=== PATIENT | female | born 1970 | race Caucasian/White ===

== ENCOUNTER 2022-05-09 21:10 | Observation (INO) | payer OTHER ==
[2022-05-09 21:37] VITALS: BMI 25.5
[2022-05-09 22:33] LABS: Troponin I Less than 0.010 ng/mL (< 0.028)
[2022-05-10] MEDS ORDERED: Nitroglycerin 0.4 MG TAB (25 Tab Bottle) SL PRN (00:03)
[2022-05-10 04:37] LABS: #Basophils 0.1 10x3/uL (0.0-0.2); #Eosinphils 0.1 10x3/uL (0.0-0.5); #Monocytes 0.5 10x3/uL (0.0-1.1); #Neutrophils 3.4 10x3/uL (1.5-8.4); %Basophils 0.8 % (0.0-2.0); %Eosinophils 2.1 % (0.0-6.0); %Lymphocytes 38.6 % (18.0-47.0); %Monocytes 7.4 % (0.0-10.0); %Neutrophils 50.9 % (40.0-75.0); Hemoglobin 12.9 g/dL (12.0-15.5); Mean Corpuscular HGB CONC 33.4 g/dL (32.0-36.0); Mean Corpuscular Hemoglobin 29.5 pg (27.0-33.0); Mean Corpuscular Volume 88.3 fl (81.6-98.3); Mean Platelet Volume 10.7 fl (7.4-10.4); Platelet Count 201 10x3/uL (150-450); RBC Distribution Width 13.2 % (11.5-14.5); Red Blood Cell (RBC) Count 4.37 10x6/uL (3.90-5.03); White Blood Cell (WBC) Count 6.6 10x3/uL (3.5-10.5)
[2022-05-10 04:42] LABS: Anion Gap 12 mmol/L (10-20); BUN (Urea Nitrogen) 21 mg/dL (7.0-18.7); Calc. Creatinine Clearance 97 mL/min (70-130); Calcium 9.2 mg/dL (7.8-10.44); Carbon Dioxide 28 mmol/L (22-29); Cardiac Risk 6.2 (Less than 4.5); Chloride 105 mmol/L (98-107); Cholesterol 277 mg/dl (< 200 Desired); Estimated GFR 88; Glucose 225 mg/dL (70-105); HDL Cholesterol 45 mg/dL (>60 Neg Risk); LDL Cholesterol, Calculated 188 mg/dL; Magnesium 1.8 mg/dL (1.6-2.6); Potassium 4.2 mmol/L (3.5-5.1); Sodium 141 mmol/L (136-145); Triglycerides 220 mg/dL (Less than 150)
[2022-05-10 04:46] LABS: Troponin I Less than 0.010 ng/mL (< 0.028)
[2022-05-10] MEDS ORDERED: Enoxaparin Sodium 40 MG/0.4 ML SYRINGE SC SCH (09:00)
[2022-05-10] MEDS ORDERED: (Linaclotide [Linzess] 290 MCG Capsule) PO SCH (09:00)
[2022-05-10] MEDS ORDERED: FLU VACC QS2022-23(6MOS UP)/PF 60 MCG/0.5 ML SYRINGE IM ONE (09:00)
[2022-05-10] MEDS: Ascorbic Acid 500 mg Chewable Tablet PO SCH (09:40)
[2022-05-10] MEDS: Pregabalin 75 MG CAP PO SCH ×2 (09:40→23:15)
[2022-05-10] MEDS: tiZANidine HCl 4 MG TAB PO SCH (09:41)
[2022-05-10] MEDS: Cholecalciferol 1,000 UNITS (25 MCG) TAB PO SCH (09:42)
[2022-05-10] MEDS: Cyclobenzaprine 10 MG TAB PO SCH ×3 (09:42→23:15)
[2022-05-10] MEDS: Clopidogrel Bisulfate 75 MG TAB PO SCH (09:42)
[2022-05-10] MEDS: Aspirin 81 mg Enteric Coated Tablet PO SCH (09:42)
[2022-05-10] MEDS: Zinc Sulfate 220 MG CAP PO SCH (09:42)
[2022-05-10] MEDS: PARoxetine 20 MG TAB PO SCH (09:43)
[2022-05-10] MEDS: Meloxicam 7.5 MG TAB PO SCH (09:46)
[2022-05-10] MEDS ORDERED: Dextrose 50% Abboject 50 ML SYRINGE SLOW IVP PRN (10:58)
[2022-05-10] MEDS ORDERED: Dextrose 5% in Water 1,000 ML IV PRN (10:58)
[2022-05-10] MEDS: HumaLOG 300 UNITS/3 ML VIAL SC PRN ×2 (11:29→17:44)
[2022-05-10 15:29] LABS: Hemoglobin A1c 12.6 % (4.0-6.0)
[2022-05-10] MEDS ORDERED: Communication Order-Pharmacy FS SCH (18:00)
[2022-05-10] MEDS: Sodium Chloride 0.9% 1,000 ML IV SCH (19:53)
[2022-05-10] MEDS ORDERED: Atorvastatin Calcium 40 MG TAB PO SCH (21:00)
[2022-05-10] MEDS: hydrOXYzine 25 MG TAB PO SCH (23:15)
[2022-05-10] MEDS: Atorvastatin Calcium 40 MG TAB PO SCH (23:15)
[2022-05-10] MEDS: Lantus 1000 UNITS/10 ML VIAL SC SCH (23:16)
[2022-05-11] MEDS: Pregabalin 75 MG CAP PO SCH ×2 (05:59→20:58)
[2022-05-11] MEDS: tiZANidine HCl 4 MG TAB PO SCH (05:59)
[2022-05-11] MEDS: Cholecalciferol 1,000 UNITS (25 MCG) TAB PO SCH (06:00)
[2022-05-11] MEDS: Cyclobenzaprine 10 MG TAB PO SCH ×3 (06:00→21:00)
[2022-05-11] MEDS: Ascorbic Acid 500 mg Chewable Tablet PO SCH (06:00)
[2022-05-11] MEDS: Meloxicam 7.5 MG TAB PO SCH (06:01)
[2022-05-11] MEDS: Clopidogrel Bisulfate 75 MG TAB PO SCH (06:02)
[2022-05-11] MEDS: PARoxetine 20 MG TAB PO SCH (06:02)
[2022-05-11] MEDS: Zinc Sulfate 220 MG CAP PO SCH (06:02)
[2022-05-11] MEDS: Aspirin 81 mg Enteric Coated Tablet PO SCH (06:02)
[2022-05-11 06:04] LABS: Anion Gap 11 mmol/L (10-20); BUN (Urea Nitrogen) 20 mg/dL (7.0-18.7); Calc. Creatinine Clearance 114 mL/min (70-130); Calcium 8.5 mg/dL (7.8-10.44); Carbon Dioxide 24 mmol/L (22-29); Chloride 109 mmol/L (98-107); Estimated GFR 106; Glucose 133 mg/dL (70-105); Magnesium 1.7 mg/dL (1.6-2.6); Sodium 140 mmol/L (136-145)
[2022-05-11 06:07] LABS: Troponin I Less than 0.010 ng/mL (< 0.028)
[2022-05-11] MEDS: Sodium Chloride 0.9% 1,000 ML IV SCH ×2 (06:22→10:50)
[2022-05-11] MEDS ORDERED: Nitroglycerin 50 MG/250 ML BOT 0 ML ONE (07:22)
[2022-05-11] MEDS ORDERED: Heparin 10,000 UNITS/ 10 ML VIAL ONE (07:23)
[2022-05-11] MEDS ORDERED: Lidocaine 1% 20 ML MDV ONE (07:48)
[2022-05-11] MEDS ORDERED: Fentanyl 100 MCG/2 ML VIAL ONE (08:42)
[2022-05-11] MEDS ORDERED: Midazolam HCl 2 mg/2 ml Vial ONE (08:43)
[2022-05-11] MEDS ORDERED: Iopamidol 300 61% 100 ML VIAL FS ONE (09:05)
[2022-05-11] MEDS ORDERED: Iopamidol 300 61% 50 ML VIAL FS ONE (09:05)
[2022-05-11] MEDS: Lantus 1000 UNITS/10 ML VIAL SC SCH ×2 (09:26→21:02)
[2022-05-11] MEDS ORDERED: TICAGRELOR 90 MG TABLET ONE (09:27)
[2022-05-11] MEDS ORDERED: Adenosine 6 MG/2 ML VIAL ONE (09:43)
[2022-05-11] MEDS ORDERED: Atropine Sulfate 0.4 mg/1 ml Vial ONE (09:52)
[2022-05-11] MEDS ORDERED: Protamine Sulfate 50 MG/5 ML VIAL ONE (09:59)
[2022-05-11] MEDS: HYDROcodone/Acetaminophen 10/325 mg Tablet PO PRN (13:02)
[2022-05-11] MEDS: Atorvastatin Calcium 40 MG TAB PO SCH (21:00)
[2022-05-11] MEDS: hydrOXYzine 25 MG TAB PO SCH (21:01)
[2022-05-11] MEDS: TICAGRELOR 90 MG TABLET PO SCH (21:01)
[2022-05-12] MEDS: Sodium Chloride 0.9% 1,000 ML IV SCH ×2 (00:08→07:02)
[2022-05-12 04:58] LABS: ALT (SGPT) 70 U/L (8-55); AST (SGOT) 70 U/L (5-34); Albumin 3.1 g/dL (3.5-5.0); Alkaline Phosphatase 91 U/L (40-110); Anion Gap 10 mmol/L (10-20); BUN (Urea Nitrogen) 14 mg/dL (7.0-18.7); Bilirubin, Total 0.3 mg/dL (0.2-1.2); Calc. Creatinine Clearance 121 mL/min (70-130); Calcium 8.4 mg/dL (7.8-10.44); Carbon Dioxide 23 mmol/L (22-29); Chloride 109 mmol/L (98-107); Estimated GFR 107; Glucose 179 mg/dL (70-105); Potassium 3.9 mmol/L (3.5-5.1); Protein, Total 5.1 g/dL (6.0-8.3); Sodium 138 mmol/L (136-145)
[2022-05-12 04:59] LABS: #Eosinphils 0.2 10x3/uL (0.0-0.5); #Monocytes 0.4 10x3/uL (0.0-1.1); #Neutrophils 3.3 10x3/uL (1.5-8.4); %Basophils 0.6 % (0.0-2.0); %Lymphocytes 27.5 % (18.0-47.0); %Monocytes 7.2 % (0.0-10.0); %Neutrophils 61.5 % (40.0-75.0); Hemoglobin 11.9 g/dL (12.0-15.5); Mean Corpuscular HGB CONC 33.9 g/dL (32.0-36.0); Mean Corpuscular Hemoglobin 29.8 pg (27.0-33.0); Mean Platelet Volume 10.8 fl (7.4-10.4); Platelet Count 184 10x3/uL (150-450); Red Blood Cell (RBC) Count 3.99 10x6/uL (3.90-5.03); White Blood Cell (WBC) Count 5.4 10x3/uL (3.5-10.5)
[2022-05-12] MEDS: HumaLOG 300 UNITS/3 ML VIAL SC PRN (07:03)
[2022-05-12 07:33] VITALS: BP 129/88; TEMP 97.4
[2022-05-12] MEDS ORDERED: Ezetimibe 10 MG TAB PO SCH (09:00)
[2022-05-12] MEDS ORDERED: Aspirin Chewable 81 MG TAB PO SCH (09:00)
[2022-05-12] MEDS: PARoxetine 20 MG TAB PO SCH (09:04)
[2022-05-12] MEDS: Ascorbic Acid 500 mg Chewable Tablet PO SCH (09:04)
[2022-05-12] MEDS: Cholecalciferol 1,000 UNITS (25 MCG) TAB PO SCH (09:04)
[2022-05-12] MEDS: HYDROcodone/Acetaminophen 10/325 mg Tablet PO PRN (09:04)
[2022-05-12] MEDS: Zinc Sulfate 220 MG CAP PO SCH (09:04)
[2022-05-12] MEDS: Cyclobenzaprine 10 MG TAB PO SCH (09:04)
[2022-05-12] MEDS: TICAGRELOR 90 MG TABLET PO SCH (09:04)
[2022-05-12] MEDS: tiZANidine HCl 4 MG TAB PO SCH (09:04)
[2022-05-12] MEDS: Lantus 1000 UNITS/10 ML VIAL SC SCH (09:05)
[2022-05-12] MEDS: Pregabalin 75 MG CAP PO SCH (09:05)
== END 2022-05-12 11:16 | disposition home or self-care (01) ==
LOC: INTOOBSV 21:10 → CSHTELE 21:10 → UNDOADMOB 21:10 → CSHTELE 05-10 00:03
PROVIDERS: ADMIT Family Medicine; ATTEND Internal Medicine
PROC: B241ZZ3 Ultrasonography of Multiple Coronary Arteries, Intravascular (ICD-10-PCS; principal; 2022-05-11)
PROC: 02703DZ Dilation of Coronary Artery, One Artery with Intraluminal Device, Percutaneous Approach (ICD-10-PCS; 2022-05-11)
DX: I25.110 Atherosclerotic heart disease of native coronary artery with unstable angina pectoris (principal); I34.0 Nonrheumatic mitral (valve) insufficiency; I36.1 Nonrheumatic tricuspid (valve) insufficiency; U07.1 COVID-19; E11.9 Type 2 diabetes mellitus without complications; E78.5 Hyperlipidemia, unspecified; I10 Essential (primary) hypertension; F41.0 Panic disorder [episodic paroxysmal anxiety]; K80.20 Calculus of gallbladder without cholecystitis without obstruction; G89.29 Other chronic pain; F41.9 Anxiety disorder, unspecified; K21.9 Gastro-esophageal reflux disease without esophagitis; J90 Pleural effusion, not elsewhere classified; Z90.49 Acquired absence of other specified parts of digestive tract; Z96.651 Presence of right artificial knee joint; Z79.82 Long term (current) use of aspirin; Z79.899 Other long term (current) drug therapy; Z79.4 Long term (current) use of insulin
CPT/HCPCS: 36415; 36416; 80048; 80053; 80061; 83036; 83735; 84484; 85025; 85347; 92928; 92978; 92979; 93005; 93010; 93306; 93458; 96372; 97139; 99152; 99153; C1725; C1753; C1760; C1769; C1874; C1887; C9600; G0378; J0153; J0461; J1644; J1650; J1815; J2250; J2720; J3010; J7050; Q9967

== ENCOUNTER 2022-06-15 00:52 | Observation (INO) | payer OTHER ==
[2022-06-15] MEDS ORDERED: Sodium Chloride 0.9% 1,000 ML IV SCH (02:00)
[2022-06-15] MEDS ORDERED: diphenhydrAMINE 50 MG/ML VIAL IVP SCH ×2 (02:00→05:00)
[2022-06-15] MEDS ORDERED: Promethazine HCl 12.5 MG in Sodium Chloride 0.9% 50 ML IVPB SCH (02:00)
[2022-06-15] MEDS ORDERED: Aspirin 300 MG Suppository PR SCH (02:00)
[2022-06-15] MEDS ORDERED: Ketorolac Tromethamine 30 MG/ML VIAL IVP SCH (02:00)
[2022-06-15 02:13] LABS: Troponin I 0.012 ng/mL (< 0.028)
[2022-06-15 02:25] LABS: #Basophils 0.1 10x3/uL (0.0-0.2); #Eosinphils 0.2 10x3/uL (0.0-0.5); #Monocytes 0.4 10x3/uL (0.0-1.1); #Neutrophils 3.5 10x3/uL (1.5-8.4); %Basophils 1.1 % (0.0-2.0); %Eosinophils 2.7 % (0.0-6.0); %Lymphocytes 36.8 % (18.0-47.0); %Monocytes 6.6 % (0.0-10.0); %Neutrophils 52.6 % (40.0-75.0); Hemoglobin 12.7 g/dL (12.0-15.5); Mean Corpuscular Volume 85.6 fl (81.6-98.3); Mean Platelet Volume 11.6 fl (7.4-10.4); Platelet Count 217 10x3/uL (150-450); RBC Distribution Width 12.9 % (11.5-14.5); Red Blood Cell (RBC) Count 4.24 10x6/uL (3.90-5.03); White Blood Cell (WBC) Count 6.6 10x3/uL (3.5-10.5)
[2022-06-15 02:27] LABS: INR-International Normal Ratio 0.9; PTT 25.3 sec (22.0-33.0); Prothrombin Time 9.6 sec (9.5-12.1)
[2022-06-15 02:32] LABS: Anion Gap 15 mmol/L (10-20); BUN (Urea Nitrogen) 19 mg/dL (7.0-18.7); Calc. Creatinine Clearance 0 mL/min (70-130); Calcium 9.6 mg/dL (7.8-10.44); Carbon Dioxide 25 mmol/L (22-29); Chloride 104 mmol/L (98-107); Estimated GFR 65; Glucose 394 mg/dL (70-105); Magnesium 1.9 mg/dL (1.6-2.6); Potassium 4.5 mmol/L (3.5-5.1); Sodium 139 mmol/L (136-145)
[2022-06-15] MEDS ORDERED: Dextrose 5% in Water 1,000 ML IV PRN (02:34)
[2022-06-15] MEDS ORDERED: Dextrose 50% Abboject 50 ML SYRINGE SLOW IVP PRN (02:34)
[2022-06-15] MEDS ORDERED: Insulin Regular 300 UNITS/3 ML VIAL SC PRN (02:34)
[2022-06-15] MEDS ORDERED: HumaLOG 300 UNITS/3 ML VIAL SC PRN (02:34)
[2022-06-15 02:38] VITALS: BMI 26.7
[2022-06-15] MEDS: Sodium Chloride 0.9% 1,000 ML IV SCH ×3 (04:51→21:41)
[2022-06-15] MEDS: Nitroglycerin 2% Ointment 1 INCH/1 GM Packet TOP SCH ×3 (04:51→18:30)
[2022-06-15 07:18] LABS: Troponin I Less than 0.010 ng/mL (< 0.028)
[2022-06-15] MEDS ORDERED: Pantoprazole 40 MG VIAL IVP SCH (09:00)
[2022-06-15] MEDS: Enoxaparin Sodium 40 MG/0.4 ML SYRINGE SC SCH (09:00)
[2022-06-15] MEDS: TICAGRELOR 90 MG TABLET PO SCH ×2 (09:01→21:20)
[2022-06-15] MEDS: Lantus 1000 UNITS/10 ML VIAL SC SCH ×2 (11:13→21:24)
[2022-06-15] MEDS: Atorvastatin Calcium 40 MG TAB PO SCH (21:20)
[2022-06-15] MEDS: HumaLOG 300 UNITS/3 ML VIAL SC PRN (23:47)
[2022-06-16] MEDS: Nitroglycerin 2% Ointment 1 INCH/1 GM Packet TOP SCH ×3 (06:37→17:55)
[2022-06-16] MEDS ORDERED: LINACLOTIDE 290 MCG PO SCH (09:00)
[2022-06-16] MEDS: Lansoprazole 3 MG/ML ORAL SUSPENSION PO SCH (09:26)
[2022-06-16] MEDS: Enoxaparin Sodium 40 MG/0.4 ML SYRINGE SC SCH (09:26)
[2022-06-16] MEDS: TICAGRELOR 90 MG TABLET PO SCH ×2 (09:27→21:11)
[2022-06-16] MEDS: Aspirin Chewable 81 MG TAB PO SCH ×2 (09:29→09:32)
[2022-06-16] MEDS: Lantus 1000 UNITS/10 ML VIAL SC SCH ×2 (09:29→21:12)
[2022-06-16] MEDS: HumaLOG 300 UNITS/3 ML VIAL SC PRN ×2 (11:37→16:46)
[2022-06-16] MEDS: Atorvastatin Calcium 40 MG TAB PO SCH (21:12)
[2022-06-17] MEDS: Nitroglycerin 2% Ointment 1 INCH/1 GM Packet TOP SCH ×2 (03:02→13:07)
[2022-06-17] MEDS: HumaLOG 300 UNITS/3 ML VIAL SC PRN (06:38)
[2022-06-17] MEDS ORDERED: Acetaminophen 325 MG TAB PO PRN (07:41)
[2022-06-17] MEDS ORDERED: Ondansetron ODT 4 MG TAB PO PRN (07:45)
[2022-06-17] MEDS ORDERED: Aspirin 81 mg Enteric Coated Tablet PO SCH (09:00)
[2022-06-17] MEDS ORDERED: Lisinopril 10 MG TAB PO SCH (09:00)
[2022-06-17] MEDS: Enoxaparin Sodium 40 MG/0.4 ML SYRINGE SC SCH (09:27)
[2022-06-17] MEDS: Lantus 1000 UNITS/10 ML VIAL SC SCH (09:27)
[2022-06-17] MEDS: TICAGRELOR 90 MG TABLET PO SCH (09:28)
[2022-06-17] MEDS: Lansoprazole 3 MG/ML ORAL SUSPENSION PO SCH (09:32)
[2022-06-17 09:35] VITALS: BP 130/85; TEMP 98.7
== END 2022-06-17 11:04 | disposition home or self-care (01) ==
LOC: INTOOBSV 00:52 → CSHTELE 00:52
PROVIDERS: ADMIT Family Medicine; ATTEND Internal Medicine
DX: R07.89 Other chest pain (principal); R07.2 Precordial pain; I25.10 Atherosclerotic heart disease of native coronary artery without angina pectoris; I11.0 Hypertensive heart disease with heart failure; I50.30 Unspecified diastolic (congestive) heart failure; E78.2 Mixed hyperlipidemia; E11.65 Type 2 diabetes mellitus with hyperglycemia; R53.81 Other malaise; R11.2 Nausea with vomiting, unspecified; F41.0 Panic disorder [episodic paroxysmal anxiety]; K21.9 Gastro-esophageal reflux disease without esophagitis; G43.909 Migraine, unspecified, not intractable, without status migrainosus; G89.4 Chronic pain syndrome; Z91.14 Patient's other noncompliance with medication regimen; Z85.42 Personal history of malignant neoplasm of other parts of uterus; Z86.73 Personal history of transient ischemic attack (TIA), and cerebral infarction without residual deficits; Z79.82 Long term (current) use of aspirin; Z79.4 Long term (current) use of insulin; Z79.899 Other long term (current) drug therapy; Z87.891 Personal history of nicotine dependence; Z95.5 Presence of coronary angioplasty implant and graft; Z90.49 Acquired absence of other specified parts of digestive tract; Z90.710 Acquired absence of both cervix and uterus; Z98.890 Other specified postprocedural states
CPT/HCPCS: 36415; 36416; 80048; 80061; 83690; 83735; 84484; 85025; 85610; 85730; 93005; 93010; 96372; 96374; 96375; 96376; C9113; G0378; J1200; J1650; J1815; J1885; J2550; J7050; Q0162

== ENCOUNTER 2023-06-23 13:59 | Emergency (ER) | payer OTHER ==
[~2023-06-23 13:59] MED LIST: Iopamidol 300 61% 100 ML VIAL FS ONE
[2023-06-23] MEDS ORDERED: Morphine 4 MG/ML VIAL ONE (15:35)
[2023-06-23] MEDS ORDERED: Ondansetron PF 4 MG/2 ML Vial ONE (15:35)
[2023-06-23 16:00] LABS: #Basophils 0.1 10x3/uL (0.0-0.2); #Eosinphils 0.2 10x3/uL (0.0-0.5); #Monocytes 0.5 10x3/uL (0.0-1.1); #Neutrophils 4.6 10x3/uL (1.5-8.4); %Basophils 0.8 % (0.0-2.0); %Eosinophils 2.4 % (0.0-6.0); %Lymphocytes 37.4 % (18.0-47.0); %Neutrophils 53.3 % (40.0-75.0); Hemoglobin 14.2 g/dL (12.0-15.5); Mean Corpuscular HGB CONC 33.8 g/dL (32.0-36.0); Mean Corpuscular Volume 85.7 fl (81.6-98.3); Mean Platelet Volume 10.4 fl (7.4-10.4); Platelet Count 221 10x3/uL (150-450); RBC Distribution Width 13.2 % (11.5-14.5); White Blood Cell (WBC) Count 8.7 10x3/uL (3.5-10.5)
[2023-06-23 16:14] LABS: INR-International Normal Ratio 0.9; PTT 26.3 sec (22.0-33.0); Prothrombin Time 9.6 sec (9.5-12.1)
[2023-06-23 16:22] LABS: ALT (SGPT) 53 U/L (8-55); AST (SGOT) 13 U/L (5-34); Albumin 4.4 g/dL (3.5-5.0); Alkaline Phosphatase 141 U/L (40-110); Anion Gap 17 mmol/L (10-20); BUN (Urea Nitrogen) 11 mg/dL (9.8-20.1); Bilirubin, Total 0.2 mg/dL (0.2-1.2); Calc. Creatinine Clearance 0 mL/min (70-130); Calcium 9.9 mg/dL (7.8-10.44); Carbon Dioxide 23 mmol/L (22-29); Chloride 106 mmol/L (98-107); Estimated GFR 95; Globulin 2.5 g/dL (2.4-3.5); Glucose 123 mg/dL (70-105); Lipase 32 U/L (8-78); Magnesium 1.7 mg/dL (1.6-2.6); Potassium 3.8 mmol/L (3.5-5.1); Protein, Total 6.9 g/dL (6.0-8.3); Sodium 142 mmol/L (136-145)
[2023-06-23 16:28] LABS: Troponin I Less than 0.010 ng/mL (< 0.028)
== END 2023-06-23 18:04 | disposition home or self-care (01) ==
LOC: CSHERS 13:59
DX: R10.13 Epigastric pain (principal); M79.81 Nontraumatic hematoma of soft tissue; R11.0 Nausea; I10 Essential (primary) hypertension; E11.9 Type 2 diabetes mellitus without complications
CPT/HCPCS: 74177; 80053; 83605; 83690; 83735; 84484; 85025; 85610; 85730; 93005; 93010; 94760; 96361; 96374; 96375; J2270; J2405; Q9967

== ENCOUNTER 2023-12-19 16:25 | Inpatient (IN) | payer OTHER ==
[2023-12-19 17:50] LABS: #Basophils 0.05 10x3/uL (0.0-0.2); #Eosinphils 0.09 10x3/uL (0.0-0.5); #Monocytes 1.01 10x3/uL (0.0-1.1); #Neutrophils 10.07 10x3/uL (1.5-8.4); %Basophils 0.4 % (0.0-2.0); %Eosinophils 0.7 % (0.0-6.0); %Lymphocytes 13.1 % (18.0-47.0); %Monocytes 7.8 % (0.0-10.0); %Neutrophils 77.5 % (40.0-75.0); Hematocrit 33.8 % (34.9-44.5); Hemoglobin 11.9 g/dL (12.0-15.5); Mean Corpuscular HGB CONC 35.2 g/dL (32.0-36.0); Mean Corpuscular Hemoglobin 30.4 pg (27.0-33.0); Mean Corpuscular Volume 86.2 fL (81.6-98.3); Mean Platelet Volume 10.7 fL (7.4-10.4); Platelet Count 379 10x3/uL (150-450); RBC Distribution Width 12.3 % (11.5-14.5); Red Blood Cell (RBC) Count 3.92 10x6/uL (3.90-5.03)
[2023-12-19 18:11] LABS: Prothrombin Time 10.5 sec (9.5-12.1)
[2023-12-19 18:12] LABS: ALT (SGPT) 14 U/L (8-55); AST (SGOT) 12 U/L (5-34); Alkaline Phosphatase 148 U/L (40-110); Anion Gap 18 mmol/L (10-20); BUN (Urea Nitrogen) 13 mg/dL (9.8-20.1); Bilirubin, Total 0.2 mg/dL (0.2-1.2); Calc. Creatinine Clearance 0 mL/min (70-130); Calcium 9.2 mg/dL (7.8-10.44); Carbon Dioxide 21 mmol/L (22-29); Chloride 99 mmol/L (98-107); Estimated GFR 68; Globulin 3.8 g/dL (2.4-3.5); Potassium 4.5 mmol/L (3.5-5.1); Protein, Total 6.8 g/dL (6.0-8.3); Sodium 133 mmol/L (136-145)
[2023-12-19 18:19] LABS: Glucose 423 mg/dL (70-105)
[2023-12-19] MEDS ORDERED: Piperacillin/Tazobactam 4.5 GM VIAL ONE (18:20)
[2023-12-19] MEDS ORDERED: Vancomycin 1 GM VIAL ONE (18:20)
[2023-12-19] MEDS ORDERED: Calcium Carbonate 500 MG ChewTAB PO PRN (19:17)
[2023-12-19] MEDS ORDERED: Ondansetron PF 4 MG/2 ML Vial IVP PRN (19:17)
[2023-12-19] MEDS ORDERED: Glucagon 1 MG/ML KIT IM PRN (19:17)
[2023-12-19] MEDS ORDERED: Acetaminophen 325 MG TAB PO PRN (19:17)
[2023-12-19] MEDS ORDERED: Senokot S 8.6-50 MG TAB PO PRN (19:17)
[2023-12-19] MEDS ORDERED: Dextrose 50% Abboject 50 ML SYRINGE SLOW IVP PRN (19:17)
[2023-12-19] MEDS ORDERED: Dextrose 5% in Water 1,000 ML IV PRN (19:17)
[2023-12-19] MEDS ORDERED: hydrOXYzine 25 MG TAB PO PRN (19:21)
[2023-12-19] MEDS: Clindamycin/D5W 600 MG in Premix 1 BAG IVPB SCH (20:49)
[2023-12-19] MEDS: Zolpidem Tartrate 5 MG TAB PO PRN (21:09)
[2023-12-19] MEDS: Lactated Ringer's 1,000 ML IV SCH (21:09)
[2023-12-19] MEDS: HYDROcodone/Acetaminophen 5/325 mg Tablet PO PRN (21:10)
[2023-12-19] MEDS: Pregabalin 75 MG CAP PO SCH (21:10)
[2023-12-19] MEDS: tiZANidine HCl 4 MG TAB PO SCH (21:10)
[2023-12-19] MEDS: Ranolazine ER 500 MG TAB PO SCH (21:10)
[2023-12-19] MEDS: Metoprolol Tartrate 25 MG TAB PO SCH (21:10)
[2023-12-19] MEDS: Cyclobenzaprine 10 MG TAB PO SCH (21:10)
[2023-12-19] MEDS: HumaLOG 300 UNITS/3 ML VIAL SC PRN (21:11)
[2023-12-19] MEDS: Lantus 1000 UNITS/10 ML VIAL SC SCH (21:11)
[2023-12-19 22:39] VITALS: BMI 25.8
[2023-12-20] MEDS: Cefepime 2 GM in Sodium Chloride 0.9% 100 ML IVPB SCH (00:11)
[2023-12-20] MEDS: Ketorolac Tromethamine 30 MG (1 mL) VIAL IVP SCH (00:11)
[2023-12-20 03:42] LABS: #Basophils 0.03 10x3/uL (0.0-0.2); #Eosinphils 0.11 10x3/uL (0.0-0.5); #Neutrophils 6.64 10x3/uL (1.5-8.4); %Basophils 0.3 % (0.0-2.0); %Eosinophils 1.1 % (0.0-6.0); %Lymphocytes 20.2 % (18.0-47.0); %Monocytes 10.2 % (0.0-10.0); %Neutrophils 67.8 % (40.0-75.0); Hematocrit 29.6 % (34.9-44.5); Mean Corpuscular HGB CONC 33.8 g/dL (32.0-36.0); Mean Corpuscular Hemoglobin 29.5 pg (27.0-33.0); Mean Corpuscular Volume 87.3 fL (81.6-98.3); Mean Platelet Volume 10.7 fL (7.4-10.4); Platelet Count 343 10x3/uL (150-450); RBC Distribution Width 12.3 % (11.5-14.5); Red Blood Cell (RBC) Count 3.39 10x6/uL (3.90-5.03); White Blood Cell (WBC) Count 9.8 10x3/uL (3.5-10.5)
[2023-12-20 03:46] LABS: Anion Gap 13 mmol/L (10-20); BUN (Urea Nitrogen) 12 mg/dL (9.8-20.1); Calc. Creatinine Clearance 97 mL/min (70-130); Calcium 8.4 mg/dL (7.8-10.44); Carbon Dioxide 22 mmol/L (22-29); Chloride 107 mmol/L (98-107); Estimated GFR 89; Glucose 233 mg/dL (70-105); Potassium 3.7 mmol/L (3.5-5.1); Sodium 138 mmol/L (136-145)
[2023-12-20 03:51] LABS: Vancomycin, Random 6.5 ug/mL (See Comment)
[2023-12-20] MEDS: Vancomycin 1 GM in Sodium Chloride 0.9% 250 ML 250 ML IVPB SCH (05:27)
[2023-12-20] MEDS: Enoxaparin 40 MG (0.4 mL) SYRINGE SC SCH (08:12)
[2023-12-20] MEDS: Atorvastatin Calcium 40 MG TAB PO SCH (08:13)
[2023-12-20] MEDS: PARoxetine 20 MG TAB PO SCH (08:13)
[2023-12-20] MEDS: Aspirin 81 mg Enteric Coated Tablet PO SCH (08:13)
[2023-12-20] MEDS: glipiZIDE XL 5 mg ER.TAB PO SCH (08:13)
[2023-12-20] MEDS: Pantoprazole DR 40 MG TAB PO SCH (08:13)
[2023-12-20] MEDS ORDERED: Linaclotide [Linzess] 290 MCG Capsule PO SCH (09:00)
[2023-12-20] MEDS: Pancrelipase DR 12,000 1 CAP PO SCH (09:19)
[2023-12-20 09:56] VITALS: BMI 25.8
[2023-12-20] MEDS: Ketorolac Tromethamine 30 MG (1 mL) VIAL IVP PRN (12:59)
[2023-12-20] MEDS: Acetaminophen 500 MG TAB PO SCH (13:00)
[2023-12-20 13:12] LABS: Hemoglobin A1c 12.5 % (4.0-6.0)
[2023-12-20] MEDS ORDERED: Promethazine 25 MG TAB PO PRN (14:42)
[2023-12-20] MEDS: VANCOMYCIN 1.25 GM/250 ML BAG 1.25 GM in Premix 1 BAG IVPB SCH (14:56)
[2023-12-20] MEDS: traMADol HCl 50 MG TAB PO PRN (16:58)
[2023-12-21 06:01] LABS: #Basophils 0.04 10x3/uL (0.0-0.2); #Eosinphils 0.11 10x3/uL (0.0-0.5); #Monocytes 0.66 10x3/uL (0.0-1.1); %Basophils 0.6 % (0.0-2.0); %Eosinophils 1.7 % (0.0-6.0); %Lymphocytes 33.1 % (18.0-47.0); %Monocytes 10.2 % (0.0-10.0); %Neutrophils 53.9 % (40.0-75.0); Hematocrit 29.5 % (34.9-44.5); Mean Corpuscular HGB CONC 33.9 g/dL (32.0-36.0); Mean Corpuscular Hemoglobin 29.3 pg (27.0-33.0); Mean Corpuscular Volume 86.5 fL (81.6-98.3); Mean Platelet Volume 10.6 fL (7.4-10.4); Platelet Count 337 10x3/uL (150-450); RBC Distribution Width 12.2 % (11.5-14.5); Red Blood Cell (RBC) Count 3.41 10x6/uL (3.90-5.03); White Blood Cell (WBC) Count 6.5 10x3/uL (3.5-10.5)
[2023-12-21 06:07] LABS: Anion Gap 11 mmol/L (10-20); BUN (Urea Nitrogen) 15 mg/dL (9.8-20.1); Calc. Creatinine Clearance 105 mL/min (70-130); Calcium 8.6 mg/dL (7.8-10.44); Carbon Dioxide 23 mmol/L (22-29); Chloride 106 mmol/L (98-107); Estimated GFR 97; Glucose 224 mg/dL (70-105); Potassium 4.2 mmol/L (3.5-5.1); Sodium 136 mmol/L (136-145)
[2023-12-21] MEDS: Bupivacaine HCl 0.5%/Epinephrine 1:200,000/PF 30 ml Vial FS SCH (14:44)
[2023-12-21] MEDS: Lidocaine 1% w/Epinephrine 1:200K 30 ML VIAL FS SCH (14:44)
[2023-12-22 04:41] LABS: Vancomycin, Random 54.5 ug/mL (See Comment)
[2023-12-22] MEDS ORDERED: HYDROcodone/Acetaminophen 7.5/325 mg Tablet PO PRN (08:07)
[2023-12-22] MEDS: guaiFENesin/DM ER PO SCH (09:34)
[2023-12-22] MEDS: Guaifenesin DM 100-10/5 ML UDCUP PO PRN (09:36)
[2023-12-22] MEDS: Morphine 4 MG/ML VIAL SLOW IVP SCH (10:00)
[2023-12-22 10:30] LABS: Vancomycin, Random 23.7 ug/mL (See Comment)
[2023-12-22] MEDS: HYDROcodone/Acetaminophen 7.5/325 mg Tablet PO PRN (12:16)
[2023-12-22] MEDS: Morphine 4 MG/ML VIAL SLOW IVP PRN (17:30)
[2023-12-22] MEDS: Vancomycin 1 GM in Sodium Chloride 0.9% 250 ML 250 ML IVPB SCH (17:30)
[2023-12-23] MEDS ORDERED: Sulfameth/Trimethoprim DS 800-160mg TAB PO SCH (09:00)
[2023-12-23] MEDS: LevoFLOXacin 750 MG TAB PO SCH (11:20)
[2023-12-23 11:55] VITALS: BP 123/78; TEMP 98.8
[2023-12-23] MEDS ORDERED: TICAGRELOR 90 MG TABLET PO SCH (21:00)
[2023-12-23] MEDS ORDERED: Famotidine 20 MG TAB PO SCH (21:00)
[2023-12-24] MEDS ORDERED: LevoFLOXacin 750 MG TAB PO SCH (06:00)
== END 2023-12-23 14:43 | disposition home or self-care (01) | DRG 872 ==
LOC: CSHERS 16:25 → CSHTELE 18:12
PROVIDERS: ADMIT Student in an Organized Health Care Education/Training Program; ATTEND Family Medicine
PROC: 3E03329 Introduction of Other Anti-infective into Peripheral Vein, Percutaneous Approach (ICD-10-PCS; 2023-12-19)
PROC: 0J9H0ZZ Drainage of Left Lower Arm Subcutaneous Tissue and Fascia, Open Approach (ICD-10-PCS; principal; 2023-12-20)
PROC: 3E033XZ Introduction of Vasopressor into Peripheral Vein, Percutaneous Approach (ICD-10-PCS; 2023-12-20)
DX: A41.01 Sepsis due to Methicillin susceptible Staphylococcus aureus (principal); L03.114 Cellulitis of left upper limb; E87.1 Hypo-osmolality and hyponatremia; L02.414 Cutaneous abscess of left upper limb; I10 Essential (primary) hypertension; E11.65 Type 2 diabetes mellitus with hyperglycemia; E78.5 Hyperlipidemia, unspecified; I25.10 Atherosclerotic heart disease of native coronary artery without angina pectoris; G89.29 Other chronic pain; E11.40 Type 2 diabetes mellitus with diabetic neuropathy, unspecified; Z79.82 Long term (current) use of aspirin; Z79.899 Other long term (current) drug therapy; Z79.4 Long term (current) use of insulin; Z95.818 Presence of other cardiac implants and grafts; Z90.49 Acquired absence of other specified parts of digestive tract; Z90.710 Acquired absence of both cervix and uterus; Z78.9 Other specified health status; Z98.891 History of uterine scar from previous surgery
CPT/HCPCS: 36415; 36416; 80048; 80053; 80202; 83036; 83605; 85025; 85610; 85730; 86140; 87040; 87070; 87077; 87186; 87205; 93005; 96365; 96367; 96368; 97139; J0692; J1650; J1815; J1885; J2270; J2543; J3370; J3490; J7050; J7120; Q9967

== ENCOUNTER 2024-04-08 18:11 | Emergency (ER) | payer OTHER ==
[2024-04-08 19:39] LABS: #Basophils 0.04 10x3/uL (0.0-0.2); #Eosinophils 0.12 10x3/uL (0.0-0.5); #Monocytes 0.39 10x3/uL (0.0-1.1); #Neutrophils 3.89 10x3/uL (1.5-8.4); %Basophils 0.6 % (0.0-2.0); %Eosinophils 1.9 % (0.0-6.0); %Lymphocytes 29.3 % (18.0-47.0); %Monocytes 6.2 % (0.0-10.0); %Neutrophils 61.8 % (40.0-75.0); Hematocrit 41.9 % (34.9-44.5); Mean Corpuscular HGB CONC 33.4 g/dL (32.0-36.0); Mean Corpuscular Hemoglobin 28.9 pg (27.0-33.0); Mean Corpuscular Volume 86.6 fL (81.6-98.3); Mean Platelet Volume 11.7 fL (7.4-10.4); Platelet Count 189 10x3/uL (150-450); RBC Distribution Width 12.6 % (11.5-14.5); Red Blood Cell (RBC) Count 4.84 10x6/uL (3.90-5.03); White Blood Cell (WBC) Count 6.3 10x3/uL (3.5-10.5)
[2024-04-08 19:42] LABS: Actual Bicarbonate (HCO3v) 23.2 mEq/L (22-28); Analyzer IN Cardio CS ER; Base Excess -2.1 mEq/L (-2 - +2); Calcium, Ionized (venous) 1.15 mmol/L (1.16-1.32); Chloride (VBG) 94 mmol/L (98-106); Critical Notified By: CP.PH; Hematocrit-VBG 44 % (36.0-47.0); Hemoglobin (Hb) 15.1 g/dL (11.7-16.0); Potassium (VBG) 4.24 mmol/L (3.70-5.30); Puncture Site Other Site; Sodium 131 mmol/L (133-146); pH (venous) 7.362 (7.32-7.43)
[2024-04-08 19:52] LABS: ALT (SGPT) 17 U/L (8-55); AST (SGOT) 13 U/L (5-34); Albumin 4.1 g/dL (3.5-5.0); Alkaline Phosphatase 96 U/L (40-110); Anion Gap 16 mmol/L (10-20); BUN (Urea Nitrogen) 18 mg/dL (9.8-20.1); Bilirubin, Total 0.2 mg/dL (0.2-1.2); Calc. Creatinine Clearance 0 mL/min (70-130); Calcium 9.7 mg/dL (7.8-10.44); Carbon Dioxide 23 mmol/L (22-29); Chloride 94 mmol/L (98-107); Estimated GFR 58; Lipase 82 U/L (8-78); Magnesium 1.8 mg/dL (1.6-2.6); Potassium 4.3 mmol/L (3.5-5.1); Protein, Total 7.1 g/dL (6.0-8.3); Sodium 129 mmol/L (136-145)
[2024-04-08 19:55] LABS: Glucose 777 mg/dL (70-105); Troponin I Less than 0.010 ng/mL (< 0.028)
[2024-04-08] MEDS ORDERED: Potassium Chloride 20 MEQ TAB ONE (20:12)
[2024-04-08 20:17] LABS: Bilirubin Neg (Negative); Blood, Urine Negative (Negative); Clarity Clear (Clear); Glucose, Urine (Dipstick) >=1000 mg/dL (Negative); Ketone, Urine Negative (Negative); Leukocyte Negative (Negative); Nitrite Negative (Negative); Protein, Urine (Dipstick) Negative (Neg-Trace); Urobilinogen Normal mg/dL (Less than 2)
[2024-04-08] MEDS ORDERED: Insulin Lispro 100 UNIT/ML 10 ML VIAL SC SCH (20:30)
[2024-04-08 20:35] LABS: Bacteria/HPF 2+ HPF (None Seen); CAUTI Indications for Culture Pelvic or flank pain; RBC/HPF None Seen HPF (0-3); Squamous Epithelial 0-3 HPF (0-3); WBC/HPF 0-3 HPF (0-3)
[2024-04-08 20:36] LABS: Urine Culture Reflex No No
[2024-04-08 23:54] LABS: Anion Gap 12 mmol/L (10-20); BUN (Urea Nitrogen) 13 mg/dL (9.8-20.1); Calc. Creatinine Clearance 0 mL/min (70-130); Calcium 8.7 mg/dL (7.8-10.44); Carbon Dioxide 23 mmol/L (22-29); Chloride 105 mmol/L (98-107); Estimated GFR 91; Glucose 289 mg/dL (70-105); Potassium 3.5 mmol/L (3.5-5.1); Sodium 136 mmol/L (136-145)
== END 2024-04-09 00:43 | disposition home or self-care (01) ==
LOC: CSHERS 18:11
DX: E11.65 Type 2 diabetes mellitus with hyperglycemia (principal); I10 Essential (primary) hypertension; Z79.4 Long term (current) use of insulin
CPT/HCPCS: 36415; 36416; 71045; 80053; 81001; 82010; 82805; 83605; 83690; 83735; 84484; 85025; 93005; 96360; J1815

== ENCOUNTER 2024-08-17 14:48 | Emergency (ER) | payer OTHER ==
[2024-08-17] MEDS ORDERED: Lorazepam 2 MG/ML VIAL ONE (15:34)
[2024-08-17] MEDS ORDERED: fentaNYL 50 mcg/mL 1 mL Vial ONE (15:35)
[2024-08-17] MEDS ORDERED: Proparacaine 0.5% Opth 15 ML BOT ONE (15:36)
[2024-08-17] MEDS ORDERED: Fluorescein Opthalmic Strip ONE (17:07)
== END 2024-08-17 18:11 | disposition home or self-care (01) ==
LOC: CSHERS 14:48
DX: S16.1XXA Strain of muscle, fascia and tendon at neck level, initial encounter (principal); H20.9 Unspecified iridocyclitis; R51.9 Headache, unspecified; I10 Essential (primary) hypertension; E11.9 Type 2 diabetes mellitus without complications; W19.XXXA Unspecified fall, initial encounter
CPT/HCPCS: 70486; 72125; 96374; 96375; J2060; J3010